=== PATIENT | female | born 1980 | race African-American/Black ===

== ENCOUNTER 2023-06-27 11:54 | Outpatient (CLI) | payer BC | END 2023-06-27 11:55 | disposition home or self-care (01) | LOC: CSHMAMMO 11:54 | PROVIDERS: ATTEND Nurse Practitioner Family | DX: Z12.31 Encounter for screening mammogram for malignant neoplasm of breast (principal); N63.25 Unspecified lump in the left breast, overlapping quadrants; Z86.018 Personal history of other benign neoplasm | CPT/HCPCS: 77063; 77067 ==

== ENCOUNTER 2023-07-01 08:57 | Outpatient (CLI) | payer BC | END 2023-07-01 08:58 | disposition home or self-care (01) | LOC: CSHULT 08:57 | PROVIDERS: ATTEND Nurse Practitioner Family | DX: N63.20 Unspecified lump in the left breast, unspecified quadrant (principal); N60.02 Solitary cyst of left breast ==